=== PATIENT | female | born 1945 | race Caucasian/White ===

== ENCOUNTER 2017-02-10 00:36 | Day surgery (SDC) | payer OTHER ==
[2017-02-10] VITALS (12 sets, daily range): BP systolic 116–173; BP diastolic 53–73; PULSE 61–89; TEMP 97.7–98.3
[~2017-02-10] VITALS: Ht 167.6 cm; Wt 84.0 kg
[2017-02-10] MEDS ORDERED: COZAAR 50MG50 MG/TAB PO (01:16)
[2017-02-10 01:57] LABS: BASO % 0.3 % (0.0-2.0); EOS # 0.1 (0.0-0.7); EOS % 0.7 % (0-4.0); GRAN # 7.2 (1.4-6.5); GRAN % 81.6 % (42.2-75.2); LYMPH # 1.2 (1.2-3.4); LYMPH % 13.1 % (20.0-51.0); MEAN CELL VOLUME 78 fl (80.0-100.0); MEAN CORPUSCULAR HGB CONC 31 g/dl (33.0-37.0); MEAN PLATELET VOLUME 9.2 fl (7.4-10.4); MONO # 0.4 (0.1-0.6); MONO % 4.1 % (1.7-9.3); PLATELET COUNT 368 K/mm3 (130-400); RED BLOOD COUNT 4.38 M/mm3 (4.10-5.30); WHITE BLOOD COUNT 8.8 K/mm3 (4.8-10.8)
[2017-02-10 02:06] LABS: PH 6 (5-8); URINE APPEARANCE Clear; URINE BACTERIA None Seen /hpf; URINE BILIRUBIN Negative (NEGATIVE); URINE BLOOD 1+ (NEGATIVE); URINE COLOR Yellow; URINE GLUCOSE Negative (NEGATIVE); URINE KETONE Negative (NEGATIVE); URINE RBC 0-2 /hpf
[2017-02-10 02:10] LABS: ADJUSTED CALCIUM 8.9 mg/dL (8.4-10.2); ALANINE AMINOTRANSFERASE 27 U/L (9-52); ALBUMIN 4.3 gm/dL (3.5-5.0); ALKALINE PHOSPHATASE 104 U/L (50-136); ANION GAP 13 mmol/L (7-16); BILIRUBIN,TOTAL 0.8 mg/dL (0.0-1.0); BLOOD UREA NITROGEN 18 mg/dL (7-17); CALCIUM 9.1 mg/dL (8.4-10.2); CARBON DIOXIDE 24 mmol/L (22-30); CHLORIDE 102 mmol/L (98-107); CREATININE, serum 0.83 mg/dL (0.52-1.25); GLUCOSE 152 mg/dL (74-106); HEMATOCRIT 34.2 % (37.0-47.0); HEMOGLOBIN 10.7 g/dl (12.5-16.0); LIPASE 111 U/L (23-300); MEAN CORPUSCULAR HEMOGLOBIN 24 pg (27.0-31.0); POTASSIUM 3.2 mmol/L (3.4-5.0); SODIUM 139 mmol/L (137-145); TOTAL PROTEIN 7.6 gm/dL (6.4-8.2)
[2017-02-10 03:02] LABS: TROPONIN-I < 0.012 ng/mL (0.000-0.034)
[2017-02-10] MEDS ORDERED: [UNRECOGNIZED DRUG - OTHER] (06:18)
[2017-02-10] MEDS ORDERED: NORCO 325 MG-7.1 TAB PO (16:45)
[2017-02-11 02:00] VITALS: BP 117/48; PULSE 60; TEMP 98.1
[2017-02-11 05:35] VITALS: BP 134/58; PULSE 60; TEMP 98.1
== END 2017-02-11 08:25 | disposition home or self-care (01) ==
LOC: COL.ER 00:36 → SDCO 02:39 → COL.ER 02:39 → SURG 02:39 → SDCO 02-11 08:25
PROVIDERS: Emergency Medicine
DX: K81.0 Acute cholecystitis (principal)
CPT/HCPCS: OP; J1100; J1170; J1885; J1956; J2310; J2405; J2550; J2704; J2765; J7030; J7120